=== PATIENT | female | born 1955 | race Caucasian/White ===

== ENCOUNTER 2024-08-09 12:40 | Emergency (ER) | payer OTHER, MEDICARE ==
[2024-08-09] MEDS ORDERED: KETOROLAC TROMETHAMINE 30 MG/1 ML VIAL ONE (12:51)
[2024-08-09] MEDS ORDERED: LIDOCAINE 5% TOPICAL PATCH ONE ×2 (12:51→14:50)
[2024-08-09] MEDS: KETOROLAC TROMETHAMINE 30 MG/1 ML VIAL IM ONE (12:56)
[2024-08-09 13:15] VITALS: BP 136/90; PULSE 77; RESP 18; TEMP 98.2; BMI 23.9
[2024-08-09] MEDS: LIDOCAINE 5% TOPICAL PATCH TP ONE (13:40)
[2024-08-09] MEDS ORDERED: LIDOCAINE PATCH REMOVAL MC SCH (22:00)
== END 2024-08-09 15:00 | disposition home or self-care (01) ==
LOC: FER 12:40
PROC: 3E0133Z Introduction of Anti-inflammatory into Subcutaneous Tissue, Percutaneous Approach (ICD-10-PCS; principal; 2024-08-09)
DX: S22.32XA Fracture of one rib, left side, initial encounter for closed fracture (principal); W01.198A Fall on same level from slipping, tripping and stumbling with subsequent striking against other object, initial encounter
CPT/HCPCS: 71250-TC; 99284-25